=== PATIENT | male | born 1980 | race Caucasian/White ===

== ENCOUNTER 2018-09-28 22:22 | Emergency (ER) | payer SELFPAY ==
[~2018-09-28] VITALS: Ht 154.9 cm; Wt 64.0 kg
[2018-09-29] MEDS ORDERED: BACITRACIN ZINC OINT UDPKT TOP ONE (00:15)
[2018-09-29] MEDS ORDERED: TETANUS, DIPHTHERIA, PERTUSSIS VAC/PF 0.5ML (>7YR OLD) IM ONE (00:15)
[2018-09-29 01:11] VITALS: BP 124/76
== END 2018-09-29 01:13 | disposition home or self-care (01) ==
LOC: ER 22:22
DX: S01.111A Laceration without foreign body of right eyelid and periocular area, initial encounter (principal); Y08.89XA Assault by other specified means, initial encounter; Y93.89 Activity, other specified; Y92.89 Other specified places as the place of occurrence of the external cause; Y99.8 Other external cause status
CPT/HCPCS: 12011; 90471; 90715; 99283; A4217; Z7610